=== PATIENT | female | born 1940 | race Caucasian/White ===

== ENCOUNTER 2022-07-22 10:06 | Outpatient (REF) | payer MEDICARE, SELFPAY ==
[2022-07-22 13:58] LABS: MANUAL DIFF FLAG NO
[2022-07-22 14:05] LABS: Basophils Percent Auto 0.8 % (0-2); Eosinophils Absolute Auto 0.2 X10*3/uL (0.0-0.4); Eosinophils Percent Auto 3.5 % (0-4); Hemoglobin 12.7 g/dl (12.0-16.0); Imm Gran Abs Auto 0.01 X10*3/uL (0.00-0.03); Imm Gran Pct Auto 0.2 % (0.0-0.4); Lymphocytes Absolute Auto 1.5 X10*3/uL (1.2-4.9); Lymphocytes Percent Auto 31.3 % (20-40); Mean Corpuscular HGB Conc 32.6 g/dl (31.0-35.0); Mean Corpuscular Hemoglobin 31.8 pg (27.0-33.0); Mean Corpuscular Volume 97.5 fL (80.0-98.0); Mean Platelet Volume 11.3 fL (9.4-12.3); Monocytes Absolute Auto 0.3 X10*3/uL (0.1-1.2); Monocytes Percent Auto 6.1 % (2-11); Neutrophils Absolute Auto 2.8 x10*3/uL (2.0-8.3); Neutrophils Percent Auto 58.1 % (45-73); Platelet Count 236 X10*3/uL (160-400); Red Cell Distribution Width 12.2 % (11.0-16.0); White Blood Count 4.9 X10*3/uL (4.8-10.8)
[2022-07-22 14:23] LABS: Alanine Aminotransferase 11 U/L (0-31); Albumin Level 4.1 g/dL (3.5-5.0); Alkaline Phosphatase 106 U/L (39-117); Anion Gap 14 (12-20); Aspartate Amino Transferase 23 U/L (5-31); Bilirubin Total 0.3 mg/dL (0.0-1.0); Blood Urea Nitrogen 14 mg/dL (9-16); Calcium 8.7 mg/dL (8.4-10.2); Carbon Dioxide 27 mmol/L (22-29); Chloride 104 mmol/L (96-108); Estimated Glomerular Filt Rate 59; Glucose Random 96 mg/dL (60-115); Iron 101 mcg/dL (30-160); Percent Iron Saturation 37 % (15-50); Potassium 4.4 mmol/L (3.3-5.1); Sodium 141 mmol/L (135-145); Total Iron Binding Capacity 274 mcg/dL (228-428); Total Protein 7.2 g/dL (6.5-8.0); Unsaturated Iron Binding 173 ug/dL
[2022-07-22 14:37] LABS: Ferritin 123 ng/mL (10-250); Free T4 (Free Thyroxine) 0.93 ng/dL (0.71-1.85); Thyroid Stimulating Hormone 1.64 uIU/mL (0.32-4.0); Vitamin D 25-OH Total 51.4 ng/mL (>30)
[2022-07-22 14:48] LABS: Folate 10.9 ng/mL (> or = 4.0); Vitamin B12 310 pg/mL (200-900)
== END 2022-07-22 10:07 | disposition home or self-care (01) ==
LOC: HO.MANLDS 10:06
PROVIDERS: Visit Provider Physician Assistant
DX: I10 Essential (primary) hypertension (principal)
CPT/HCPCS: 36415; 80053; 82306; 82607; 82728; 82746; 83540; 84439; 84443; 85025

== ENCOUNTER 2023-12-31 10:29 | Outpatient (REF) | payer MEDICARE, SELFPAY ==
[2023-12-31 13:24] LABS: MANUAL DIFF FLAG NO
[2023-12-31 13:29] LABS: Basophils Absolute Auto 0.1 X10*3/uL (0.0-0.2); Basophils Percent Auto 1.1 % (0-2); Eosinophils Absolute Auto 0.2 X10*3/uL (0.0-0.4); Eosinophils Percent Auto 3.3 % (0-4); Hematocrit 38.3 % (37.0-47.0); Hemoglobin 12.7 g/dl (12.0-16.0); Imm Gran Abs Auto 0.01 X10*3/uL (0.00-0.03); Imm Gran Pct Auto 0.2 % (0.0-0.4); Lymphocytes Absolute Auto 1.5 X10*3/uL (1.2-4.9); Lymphocytes Percent Auto 26.6 % (20-40); Mean Corpuscular HGB Conc 33.2 g/dl (31.0-35.0); Mean Corpuscular Hemoglobin 32.3 pg (27.0-33.0); Mean Corpuscular Volume 97.5 fL (80.0-98.0); Mean Platelet Volume 11.2 fL (9.4-12.3); Monocytes Absolute Auto 0.4 X10*3/uL (0.1-1.2); Monocytes Percent Auto 6.4 % (2-11); Neutrophils Absolute Auto 3.4 x10*3/uL (2.0-8.3); Neutrophils Percent Auto 62.4 % (45-73); Platelet Count 232 X10*3/uL (160-400); Red Blood Count 3.93 X10*6/uL (4.20-5.50); Red Cell Distribution Width 12.8 % (11.0-16.0); White Blood Count 5.5 X10*3/uL (4.8-10.8)
[2023-12-31 14:04] LABS: Estimated Average Glucose 108 mg/dL; Hemoglobin A1c % 5.4 % (<6.0)
[2023-12-31 14:22] LABS: Alanine Aminotransferase 10 U/L (0-31); Albumin Level 3.9 g/dL (3.5-5.0); Alkaline Phosphatase 97 U/L (39-117); Anion Gap 9 (12-20); Aspartate Amino Transferase 22 U/L (5-31); Bilirubin Total 0.3 mg/dL (0.0-1.0); Blood Urea Nitrogen 16 mg/dL (9-16); Calcium 8.8 mg/dL (8.4-10.2); Carbon Dioxide 28 mmol/L (22-29); Chloride 105 mmol/L (96-108); Estimated Glomerular Filt Rate > 60; Glucose Random 97 mg/dL (60-115); Potassium 4.1 mmol/L (3.3-5.1); Sodium 138 mmol/L (135-145); Total Protein 7.4 g/dL (6.5-8.0)
[2023-12-31 14:28] LABS: Free T4 (Free Thyroxine) 0.91 ng/dL (0.71-1.85); Thyroid Stimulating Hormone 2.23 uIU/mL (0.32-4.0); Vitamin D 25-OH Total 46.7 ng/mL (>30)
== END 2023-12-31 10:30 | disposition home or self-care (01) ==
LOC: HO.MANLDS 10:29
PROVIDERS: Visit Provider Physician Assistant
DX: Z00.00 Encounter for general adult medical examination without abnormal findings (principal)
CPT/HCPCS: 36415; 80053; 82306; 83036; 84439; 84443; 85025

== ENCOUNTER 2025-02-01 08:58 | Outpatient (REF) | payer MEDICARE, SELFPAY ==
--- OUTSIDE RECORDS SUMMARY | 2025-02-01 09:34 | XMS_ITS | Data Portability ---
Author Organization [facility] Home Service Address [address] [place] [address] Assessment No assessment recorded. Plan of Treatment Reminders Order Date Submit Date Provider Last Modified By Organization Details Last Modified Time Details Appointments ANNUAL EXAM 2025 10:30A M DAVIDE NI Not available Not available Not available Lab CMP, serum or plasma 2024 025 [facility], [address] [place] [address], [id number], 01/10/2025 13:46:31 CBC w/ auto diff 2024 025 [facility], [address] [place] [address], [id number], 01/10/2025 13:46:31 lipid panel, serum 2024 025 [facility], [address] [place] [address], [address], 01/10/2025 13:46:31 hemoglobi n A1c, QN, blood 2024 025 [facility], [address] [place] [address], [address], 01/10/2025 13:46:31 vitamin D, 25-hydrox y, total, serum 2024 025 [facility], [address] [place] [address], [address], 01/10/2025 13:46:31 CMP, serum or plasma 2023 [facility], [address] [place] [address], [place], [address], 01/01/2024 11:46:04 lipid panel, serum 2023 [facility], [address] [place] [address], [id number], 12/26/2023 13:46:07 CBC w/ auto diff 2023 [facility], [address] [place] [address], [id number], 01/01/2024 11:46:04 TSH + free T4, serum 2023 [facility], [address] [place] [address], [address], 12/26/2023 13:46:07 vitamin D, 25-hydrox y, total, serum 2023 024 [facility], [address] [place] [address], [place], [address], 12/26/2023 13:46:07 hemoglobi n A1c, QN, blood 2023 [facility], [address] [place] [address], [address], 01/01/2024 11:46:04 Referral None recorded. Procedures None recorded. Surgeries None recorded. Imaging None recorded. Medication Orders monteluka st 10 mg tablet 2023 024 rtryba Not available 01/10/2025 13:38:57 prednison e 10 mg tablet 2022 023 Not available 12/26/2023 13:30:50 hydroxyzi ne HCl 25 mg tablet 2022 023 Not available 12/26/2023 13:30:22 Patient TargetsNo targets recorded. Patient Instructions Encounter Date Encounter Id Patient Instructions Last Modified By Organization Details Last Modified Time 12/23/2022 [id number] adult depression screening* [email or web address] Not available 12/30/2022 08:31:42 pulse oximetry* rtryba Not available 12/23/2022 13:46:05 Reason for Referral None Reported. Results Created Date Observation Date Name Description Value Unit Range Abnormal Flag Note LastModifiedBy Organization Detail LastModifiedTime 12/24/19 23 12/23/2022 pulse oxime try* Result 97 Not Available [facility] [address] [facility] [address], [place], [address], 12/23/2022 13:39:00 Result Notes None recorded. 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 repeat in 2020 recommend ed January PINKY Kay [address] [place], [address], [facility] 9 09:15:55 Nodule of lung 645017594 Active 2018 incidenta l finding on ct 08/18/19January PINKY Kay [address] [place], [address], [facility] 9 09:16:14 Chronic gastriti s 9403225 Active 2020 Humberto Cary DO [address] [place], [address], [facility] 1 00:12:37 Osteoart hritis 523553280 Active 2021 DAVIDE NI [address] [place] [address], [address], [facility] 2 16:02:38 Bilatera l osteoart hritis of knees 31398200831 9107 Active 2021 DAVIDE NI [address] [place] [address], [address], [facility] 2 10:33:47 Hyperten sive disorder 39163703 Active 2021 DAVIDE NI [address] [place] [address], [address], [facility] 2 10:00:05 Insomnia 012401252 Active 2022 DAVIDE NI [address] [place] [address], [address], [facility] 3 12:06:22 Restless legs 12718975 Active 2022 DAVIDE NI [address] [place] [address], [address], [facility] 3 12:15:57 Contact dermatit is 08415900 Active 2022 DAVIDE NI [address] [place] [address], [address], [facility] 3 11:18:19 Allergic rhinitis 56746260 Active 2023 DAVIDE NI [address] [place] [address], [address], [facility] 4 13:42:18 Problem Notes None recorded. Procedures Surgical History Date Name Laterality Status Provider Name and Address Organization Details Recorded Time 4 Most Recent Mammogram completed Melissa Fregoso [facility] 03/26/2019 08:25:51 Imaging Results None recorded. Procedure Notes None recorded. Medical Equipment None Reported. Allergies Allergen ID Allergen Name Allergen Category Reaction Reaction Severity Criticality Documentation Date Start Date Code Code System Note Provider Name and Address Organization Details Recorded Time 2150 aspirin medicatio n Not available Not available Not available 05/20/2018 1191 RxNorm Arleen Abdoul jones [facility] 8 08:50:08 2151 penicilli n V Not available Not available Not available Not available 05/20/2018 7984 RxNorm Arleen Abdoul jones [facility] 8 08:50:14 Medications Name Sig Start Date Stop Date Status Note LastModified by Organization Details LastModified Time Colace 100 mg capsule Take 1 capsule twice a day by oral route for 30 days. 12/17 completed Not Available Not Available Not Available prednisone 10 mg tablet TAKE 4 TABLETS BY MOUTH DAILY FOR 2 DAYS THEN TAKE 3 TABLETS FOR 2 DAYS THEN TAKE 2 TABLETS FOR 2 DAYS THEN TAKE 1 TABLET FOR 2 DAYS 12/25 completed Not Available Not Available Not Available albuterol sulfate 2.5 mg/3 mL (0.083 %) solution for nebulizatio n USE 3 ML VIA NEBULIZER THREE TIMES DAILY 12/25 completed Not Available Not Available Not Available cetirizine 10 mg tablet TAKE 1 TABLET BY MOUTH EVERY DAY 01/21 completed Not Available Not Available Not Available alendronate 70 mg tablet TAKE 1 TABLET BY MOUTH EVERY WEEK ON AN EMPTY STOMACH. DO NOT TAKE ANY FOOD OR DRINK 30 MINUTES AFTER TAKING AND STAY UPRIGHT FOR 30 MINUTES 12/17 completed Not Available Not Available Not Available moxifloxaci n 400 mg tablet Take 1 tablet every day by oral route for 10 days. 03/16 completed Not Available Not Available Not Available tramadol 50 mg tablet TAKE 2 TABLETS BY MOUTH TWICE DAILY NEEDED active Not Available Not Available No t Available ketorolac 0.5 % eye drops PLACE 1 DROP IN SURGICAL EYE THREE TIMES DAILY FOR 3 WEEKS AFTER CATARACT SURGERY 01/10 completed Not Available Not Available Not Available montelukast 10 mg tablet TAKE 1 TABLET BY MOUTH EVERY DAY 01/10 completed Not Available Not Available Not Available hydroxyzine HCl 25 mg tablet TAKE 1 TABLET BY MOUTH EVERY 6 TO 8 HOURS FOR 7 DAYS NEEDED 12/25 completed Not Available Not Available Not Available bisacodyl 5 mg tablet,carlos yed release TK 4 TS PO 1 TIME THE DAY B PRO WITH 8 OUNCES OF WATER FOR 1 DAY 12/17 completed Not Available Not Available Not Available coenzyme Q10 take 1 capsule once daily 01/21 completed Not Available Not Available Not Available Boost 12/17 completed Not Available Not Available Not Available peg 3350-electr olytes 236 gram-22.74 gram-6.74 gram-5.86 gram solution MIX AND DRINK UTD 04/11 completed Not Available Not Available Not Available Vitamin D3 50 mcg (2,000 unit) capsule Take 1 capsule every day by oral route. 12/17 completed Not Available Not Available Not Available Linzess 145 mcg capsule Take 1 capsule every day by oral route for 30 days. 12/17 completed Not Available Not Available Not Available Breo Ellipta 100 mcg-25 mcg/dose powder for inhalation INHALE 1 PUFF BY MOUTH EVERY DAY 07/22 completed PRN Not Available Not Available Not Available Vitals Date Recorded Body height Body mass index (BMI) Body weight Heart rate Oxygen saturation Oxygen saturation in Arterial blood by Pulse oximetry Systolic blood pressure Diastolic blood pressure Provider Name and Address Organization Details Last Updated DateTime 3 159.39 cm 16.6 kg/m2 59216.0 9 g 66 /min 97 % 97 % 142 mm[Hg] 78 mm[Hg] Arleen Schreiber [facility] 3 13:36:14 Date Recorded Body height Body mass index (BMI) Body weight Heart rate Oxygen saturation Oxygen saturation in Arterial blood by Pulse oximetry Systolic blood pressure Diastolic blood pressure Provider Name and Address Organization Details Last Updated DateTime 3 159.39 cm 16.2 kg/m2 70860.9 1 g 84 /min 97 % 97 % 150 mm[Hg] 70 mm[Hg] Ute Perera [facility] 3 11:09:49 Date Recorded Body height Body mass index (BMI) Body weight Heart rate Oxygen saturation Oxygen saturation in Arterial blood by Pulse oximetry Systolic blood pressure Diastolic blood pressure Provider Name and Address Organization Details Last Updated DateTime 4 159.39 cm 15.9 kg/m2 42062 g 87 /min 97 % 97 % 138 mm[Hg] 88 mm[Hg] Kandi Drew [facility] 4 13:32:29 Date Recorded Body height Body mass index (BMI) Body weight Heart rate Oxygen saturation Oxygen saturation in Arterial blood by Pulse oximetry Systolic blood pressure Diastolic blood pressure Provider Name and Address Organization Details Last Updated DateTime 4 159.39 cm 15.6 kg/m2 71214.9 g 92 /min 97 % 97 % 136 mm[Hg] 88 mm[Hg] Kandi Cleveland [facility] 4 15:01:08 Date Recorded Body height Body mass index (BMI) Body weight Heart rate Oxygen saturation Oxygen saturation in Arterial blood by Pulse oximetry Systolic blood pressure Diastolic blood pressure Provider Name and Address Organization Details Last Updated DateTime 5 159.39 cm 15 kg/m2 02651.7 6 g 100 /min 98 % 98 % 152 mm[Hg] 90 mm[Hg] Kandi [facility] 5 13:31:12 Social History Question Answer Notes LastModified by Organizat ion Details LastModified Time Tobacco Smoking Status [facility] 13:32:12 What Was The Date Of Your Most Recent Tobacco Screening? 01/10/2025 Information not available 01/10/2025 How Much Tobacco Do You Smoke? 0.5 PPD Information not available 12/23/2022 Do You Or Have You Ever Used Any Other Forms Of Tobacco Or Nicotine? No Information not available 12/23/2022 Sex: Unknown Functional Status None recorded. Mental Status None recorded. Family History Nothing Reported. Medical History No medical history recorded. Gynecological History Statement/Question Response Most Recent Mammogram 03/21/2014 Obstetrics History GPAL:G 0 P 0 0 0 0 Immunizations Vaccine Type Date Status Note Provider Nam e and Address Organization Details Recorded Time COVID-19, mRNA, LNP-S, PF, 30 mcg/0.3 mL dose 01/22/20 21 completed Stephenie jones, [facility] 04/03/2021 09:46:36 COVID-19, mRNA, LNP-S, PF, 30 mcg/0.3 mL dose 11/17/19 21 completed Stephenie jones [facility] 04/03/2021 09:46:42 COVID-19, mRNA, LNP-S, PF, 30 mcg/0.3 mL dose 08/03/20 21 completed Kelli jones, [facility] 07/22/2022 08:04:32 Influenza, split virus, quadrivalent, preservative 07/10/20 22 [facility] 08:04:49 Tdap 03/03/20 12 completed PINKY Bradley [address] [place] [address], [address], [facility] 03/26/2019 11:10:20 Influenza, split virus, quadrivalent, preservative 06/11/20 19 [facility]/14/2019 08:38:09 pneumococcal polysaccharide PPV23 07/07/20 15 completed Humberto Cary DO [address] [place] [address], [address], [facility] 05/20/2018 10:14:22 Pneumococcal conjugate PCV 13 07/16/20 17 completed Humberto Cary DO [address] [place] [address], [address], [facility] 05/20/2018 10:14:50 Influenza, split virus, quadrivalent, preservative 06/09/20 18 completed Humberto Cary DO [address] [place] [address], [address], [facility] 06/10/2018 06:58:10 Past Encounters Encounter ID Performer Location Encounter Start Date Encounter Closed Date Diagnosis/Indication Diagnosis SNOMED-CT Code Diagnosis ICD10 Code Diagnosis Note [id number] Humberto Cary DO [facility] [address] [facility],[place] [address] 05/20/2018 09:31:35 05/20/2018 10:19:53 Chronic obstructive pulmonary disease 51805778 J44.9 cont to somke and is not going to stop 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 and able to complete tasks Tobacco de pendence syndrome 38941942 F17.200 still trying long discussion re issues with copd and smoking Primary osteoporosis 276 523786 M81.0 multiple risk factors including wgt, smoking , age etc discussed supplement ation Degenerati on of lumbar intervertebral disc 47676562 M51.36 stable when active, pain can get severe at times tramadol works very well and she is using appropriat torri and without issue or suspect Adult heal th examination 179096340 Z00.00 Active or passive immunization 561939418 Z23 recorded Screening for cardiovascular system disease 916684050 Z13.6 Screening for malignant neoplasm of colon 450326566 Z12.11 Screening for osteoporosis 444492137 Z13.820 Screening mammography 24 070601 Z12.31 [id number] Humberto Cary DO [facility] [address] [facility],[place] [employer] [facility] [employer] [place] [address] 07/24/2018 15:10:06 07/24/2018 17:09:09 Renewal of prescription 834871130 Z76.0 tramadol Chronic ob structive pulmonary disease 85435676 J44.9 cont to somke and is not going to stop 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 and able to complete tasks Tobacco de pendence syndrome 47708341 F17.200 still trying long discussion re issues with copd and smoking Degenerati on of lumbar intervertebral disc 92792111 M51.36 stable when active, pain can get severe at times tramadol works very well and she is using appropriat torri and without issue or suspect [id number] Humberto Cary DO [facility] [address] [facility],[place] [address] 03/16/2019 13:52:22 03/16/2019 15:23:56 Chronic obstructive pulmonary disease 26613614 J44.9 cont to somke and is not going to stop 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 and able to complete tasks Tobacco de pendence syndrome 24952077 F17.200 still trying long discussion re issues with copd and smoking Degenerati on of lumbar intervertebral disc 14759841 M51.36 stable when active, pain can get severe at times tramadol works very well and she is using appropriat torri and without issue or suspect [id number] Raya [facility] [address] [facility], [place] [address] 03/26/2019 10:51:47 03/26/2019 12:25:31 Adult health examination 967346331 Z00.00 already has HCP/plan Screening for cardiovascular system disease 646942780 Z13.6 Screening for malignant neoplasm of colon 627698061 Z12.11 never had colonoscop y will do cologuard Screening for osteoporosis 636876762 Z13.820 was seening susanne for treatments until adams retired then stopped treatment/ fu Screening mammography 24 227660 Z12.31 doesn't do mammograms any more has never had anything abnormal no longer planning to do any Osteoporosis 57417432 M8 1.0 Decreased body mass index 7274963 Z68.1 eats a lot Microscopic hematuria 19 5921074 R31.21 states has had for years but never saw urology 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 [id number] Raya Eliza [facility] [address] [facility],[place] [address] 07/07/2019 11:04:52 07/07/2019 11:41:05 Osteoporosis 17089340 M81.0 has taken some infusions yearly x [address] lamas - unsure of what the med was does not want to take alendronat e already taking vitamin d daily will consult endo for other treatment options Tobacco de pendence syndrome 15162981 F17.200 Chronic ob structive pulmonary disease 00912976 J44.9 breathing not bothersome Decreased body mass index 9793613 Z68.1 has been trying to increase protein trying to eat better, skips meals a lot [id number] Raya [facility] [address] [facility],[place] [address] 11/03/2019 09:56:57 11/03/2019 11:09:53 Chronic obstructive pulmonary disease 72568447 J44.9 breathing not bothersome Degenerati on of lumbar intervertebral disc 89358763 M51.36 chronic back pain takes 2 tablets twice a day fills med every 2 months med works well Pain in pelvis 98279253 R10.2 if fever, diarrhea etc recommend going to the ER ? [place] [id number] January ElizaPINKY [facility] [address] [facility] [place] [address] 12/17/2019 15:12:35 12/17/2019 16:07:48 Chronic obstructive pulmonary disease 75593092 J44.9 breathing not bothersome Constipation 58953387 K5 9.00 will get on a bowel regimen of stool softeners given the tramadol take probiotic take metamucil fiber supplement ensure to take 64 oz of fluids per day - primarily water - avoid artificial sweeteners increase fiber in diet try mag citrate OTC and if fails may need to have enema done Unintentio nal weight loss 904680663 R63.4 Lightheadedness 66090201 8 R42 possibly dehdydrate d [id number] DAVIDE NI [facility] [address] [facility] [place] [address] 06/13/2020 09:16:12 06/13/2020 09:47:37 Chronic obstructive pulmonary disease 05903062 J44.9 will give Breo samples per MB as we do not have any advair samples to give her today will see if BReo helps, patient will try and call insurance to see if they cover anything Chronic constipation 236 076769 K59.09 has tried all prior conservati ve treatment as per AB with no results has been having a lot of lower abdominal discomfort because of this will try a trial of linzess to see if improvemen t will have patient call [facility] [place] y [id number] DAVIDE NI [facility] [address] [facility] [address],[place] [address] 04/11/2021 10:05:54 04/11/2021 11:15:40 Chronic obstructive pulmonary disease 56224929 J44.9 stable Tobacco de pendence syndrome 88197924 F17.200 will not quit [id number] DAVIDE NI [facility] [address] [facility] [address],[place] [address] 12/17/2021 13:21:58 12/18/2021 12:20:26 Active or passive immunization 552876315 Z23 advised Adult heal th examination 987872670 Z00.00 BP is elevated, fluctuates Posterior rhinorrhea 758 73535 R09.82 will start on medication [id number] DAVIDE NI [facility] [address] [facility] [place] [address] 07/22/2022 09:41:49 07/22/2022 11:43:51 Chronic obstructive pulmonary disease 12560157 J40 stable Osteoarthritis 287115260 M15.0 stable on tramadol Tobacco de pendence syndrome 69525151 F17.290 will not quit per patient Hypertensive disorder 38 908578 I10 drank SIX cups of coffee before coming to the officewake s up at 5 am for work Depression screening 171 275935 Z13.31 negative [id number] DAVIDE NI [facility] [address] [facility] [address],[place] [address] 10/18/2022 11:28:02 10/22/2022 08:48:54 Degeneration of lumbar intervertebral disc 64333181 M51.36 will adjust script and see if there is still Insomnia 643213038 G47.0 9 trying unisom, will continueon ly started being an issue with her sudden issue with tramadol, has pain in the most Restless legs 47200195 G 25.81 start mag and increase fluidswill let me know if it gets betterif it doesn't will call back and we can try ropinirole [id number] DAVIDE NI [facility] [address] [facility] [address],[place] [address] 12/23/2022 13:19:23 12/23/2022 14:05:43 Active or passive immunization 616391572 Z23 advised Adult heal th examination 105091786 Z00.00 BP is elevated, fluctuates recent lab-work done in July was goodnot due today Chronic ob structive pulmonary disease 73485595 J44.9 stable Advance care planning 71 3622073 Z71.89 advised todayhas a health care proxy [id number] DAVIDE NI [facility] [address] [facility] [place] [address] 01/21/2023 10:45:22 01/21/2023 13:54:35 Contact dermatitis 61335876 L23.3 will start on prednisone and hydroxyzin e [id number] DAVIDE NI [facility] [address] [facility] [address],[place] [address] 12/26/2023 13:26:21 12/26/2023 14:04:29 Allergic rhinitis 08810947 J30.89 will set up with singulair Adult heal th examination 780346469 Z00.00 needs fu bw, routine [id number] DAVIDE NI [facility] [address] [facility] [address],[place] [address] 06/18/2024 14:37:26 06/18/2024 15:16:10 Pre-surgery evaluation 112730215 Z01.818 The patient was seen in the office today for pre-op evaluation . All medical conditions on patient's problem list were addressed and are currently stable, no interventi on needed at this time. Based on history and physical performed, the patient is cleared for surgery. Depression screening 171 090661 Z13.31 negative [id number] DAVIDE NI [facility] [address] [facility],[place] [address] 01/10/2025 13:18:43 01/10/2025 13:53:04 Active or passive immunization 962183434 Z23 advised Adult heal th examination 899938241 Z00.00 will set up with routine BW Chronic ob structive pulmonary disease 50464777 J41.1 stable Health Concerns Section Related Observation LastModified by Organization Detai ls LastModified Time None Recorded Concern Status LastModified by Organization Details LastModified Time None Recorded Advance Directives Directive None Recorded Payers Encounter Date Sequence Insurance Name Policy Number Policy Henderson Covered Member ID Henderson Member ID Guarantor Name 12/23/2022 1 [place] [employer] Lakisha Peralta [id number] Lakisha Peralta 12/23/2022 2 [facility] OPTIONS Lakisha Peralta [id number] Lakisha Peralta 01/21/2023 1 [place] [employer] Lakisha Peralta [id number] Lakisha Peralta 01/21/2023 2 [facility] - OPTIONS Lakisha Peralta [id number] Lakisha Peralta 12/26/2023 1 [place]: [facility] Lakisha Peralta [id number] Lakisha Peralta 12/26/2023 2 [facility] - OPTIONS Lakisha Peralta [id number] Lakisha Peralta 06/18/2024 1 [place] [facility] Lakisha Peralta [id number] Lakisha Peralta 06/18/2024 2 [facility] - OPTIONS Lakisha Peralta [id number] Lakisha Peralta 01/10/2025 1 MEDICARE [place]: [facility] Lakisha Peralta [id number] Laksiha Peralta 01/10/2025 2 [facility] Lakisha Peralta [id number] Lakisha Peralta Notes Date Note Type Note Provider Name a nd Address Organization Details Recorded Time 3 text/html Annual WellnessReported bypatient.Diet and Nutrition:healthy diet; discussed vitamin and supplement use; discussed portion control; discussed maintaining calcium balance; discussed diet improvement; stable no issues Fracture Risk:no history of fractures; no recent explained fracture; no sudden unexplained fractures; no previous musculoskeletal injuries; no recent injuries Physical Activity:exercises on a regular basis; recent increase in physical activity; good physical condition; discussed weightbearing activities; discussed exercise habits Additional Lifestyle Factors:tobacco use; drinks alcohol (mild-moderate) Depression Risk:never feels sad, empty, or tearful; no loss of interest in activities; no significant changes in weight; no sleep disturbances or insomnia; no agitation; no loss of energy; no feelings of worthlessness or guilt; no thoughts of suicide; no history of depression; no history of mood disorders Hearing:no loss of hearing Vision:no vision problems the patient is now able to sleep 6 hoursfeels rested low back pain is stable today at her an appt (uses tramadol sparingly)no urinary or bowel changes COPD: stable today in officeher allergies due to tend bother her [address] [place], [id number], [facility] 12/23/2022 13:54:56 3 text/html rash patient has a rash on her back to her waistno rash in the front on the sides (bilateral flanks) macular, red rashno vesciles or pustulesdoes not look like shingles possible allergic reaction?does have a lot of seasonal allergies that happen this time of year reports it's very itchyno pain, no discharge some lacerations in the skin from where she was scratching will start her on pred and hydroxyzine [address] [place], [id number], [facility] 01/21/2023 11:24:01 4 text/html Annual WellnessReported bypatient.Diet and Nutrition:healthy diet; discussed vitamin and supplement use; discussed portion control; discussed maintaining calcium balance; discussed diet improvement Depression Risk:never feels sad, empty, or tearful; no loss of interest in activities; no significant changes in weight; no sleep disturbances or insomnia; no agitation; no loss of energy; no feelings of worthlessness or guilt; no thoughts of suicide; no history of depression; no history of mood disorders Hearing:no loss of hearing Vision:no vision problems BP is fine breathing is doing well rash is stable the patient reports swelling of the MCP joint of the right thumb has been getting swollen in the morning, does have notable arthritis in her hands vaccines [id number] getting the RSV vaccine as well given her smoking hx and hx of COPD [address] [place], [id number], [facility] 12/26/2023 13:48:38 4 text/html Pre-OpReported bypatient.Surgery to be Performed:left eye cataract then right eye cataract with Dr. Valdez on 07/05/24 Risk Factorsno cognitive impairment; no functional impairment; no malnutrition; no frailty; able to climb a flight of stairs (exercise capacity>4 METS); non-smoker; no alcohol misuse; no illicit drug use; no chronic cardiopulmonary condition; not obese;obstructive sleep apnea(stable) Anesthesia hx:no history with anesthesia Functional Ability:able to walk up stairs; able to perform heavy work around the house; no difficulty walking up hills; able to walk 4 mph Post-Op Support:adequate assistance at home (daughter) DAVIDE [address] [place] [address], [id number], [facility] 06/18/2024 15:10:35 text/html Annual WellnessReported bypatient.Diet and Nutrition:healthy diet; discussed vitamin and supplement use; discussed portion control; discussed maintaining calcium balance; discussed diet improvement Fracture Risk:no history of fractures; no recent explained fracture; no sudden unexplained fractures; no previous musculoskeletal injuries Physical Activity:exercises on a regular basis; recent increase in physical activity; good physical condition Additional Lifestyle Factors:no tobacco use; drinks alcohol (mild-moderate) Depression Risk:never feels sad, empty, or tearful; no loss of interest in activities; no significant changes in weight; no sleep disturbances or insomnia; no agitation; no loss of energy; no feelings of worthlessness or guilt; no thoughts of suicide; no history of depression; no history of mood disorders Hearing:no loss of hearing Vision:no vision problems [address] [place] [address], [id number], [facility] 01/10/2025 13:47:25 OBGyn Episode No OBEpisode recorded.
[2025-02-01 13:12] LABS: MANUAL DIFF FLAG NO
[2025-02-01 13:28] LABS: Basophils Absolute Auto 0.1 X10*3/uL (0.0-0.2); Basophils Percent Auto 1.3 % (0-2); Eosinophils Absolute Auto 0.2 X10*3/uL (0.0-0.4); Eosinophils Percent Auto 2.7 % (0-4); Hematocrit 38.2 % (37.0-47.0); Hemoglobin 12.5 g/dl (12.0-16.0); Imm Gran Abs Auto 0.02 X10*3/uL (0.00-0.03); Imm Gran Pct Auto 0.4 % (0.0-0.4); Lymphocytes Absolute Auto 1.4 X10*3/uL (1.2-4.9); Lymphocytes Percent Auto 25.1 % (20-40); Mean Corpuscular HGB Conc 32.7 g/dl (31.0-35.0); Mean Corpuscular Volume 97.7 fL (80.0-98.0); Mean Platelet Volume 11.2 fL (9.4-12.3); Monocytes Absolute Auto 0.4 X10*3/uL (0.1-1.2); Monocytes Percent Auto 7.9 % (2-11); Neutrophils Absolute Auto 3.5 x10*3/uL (2.0-8.3); Neutrophils Percent Auto 62.6 % (45-73); Platelet Count 234 X10*3/uL (160-400); Red Blood Count 3.91 X10*6/uL (4.20-5.50); Red Cell Distribution Width 12.7 % (11.0-16.0); White Blood Count 5.5 X10*3/uL (4.8-10.8)
[2025-02-01 13:40] LABS: Estimated Average Glucose 117 mg/dL; Hemoglobin A1C 127.1873 umol/L; Hemoglobin A1c % 5.7 % (<6.0); Total Hemoglobin (HGBA1C) 3297.2065 umol/L
[2025-02-01 14:00] LABS: Alanine Aminotransferase 11 U/L (0-31); Albumin Level 3.9 g/dL (3.5-5.0); Alkaline Phosphatase 94 U/L (39-117); Anion Gap 10 (12-20); Aspartate Amino Transferase 30 U/L (5-31); Bilirubin Total 0.3 mg/dL (0.0-1.0); Blood Urea Nitrogen 16 mg/dL (9-16); Calcium 8.4 mg/dL (8.4-10.2); Carbon Dioxide 29 mmol/L (22-29); Chloride 104 mmol/L (96-108); Cholesterol 193 mg/dL (<200); Estimated Glomerular Filt Rate > 60; Glucose Random 89 mg/dL (60-115); HDL Cholesterol 58 mg/dL (>40); LDL Cholesterol Calculated 119 mg/dL (<100); Potassium 3.9 mmol/L (3.3-5.1); Sodium 139 mmol/L (135-145); Total Protein 7.2 g/dL (6.5-8.0); Triglycerides 83 mg/dL (<150); Vitamin D 25-OH Total 58.7 ng/mL (>30)
== END 2025-02-01 08:59 | disposition home or self-care (01) ==
LOC: HO.MANLDS 08:58
PROVIDERS: Visit Provider Physician Assistant
DX: Z00.00 Encounter for general adult medical examination without abnormal findings (principal); Z13.6 Encounter for screening for cardiovascular disorders; Z13.1 Encounter for screening for diabetes mellitus
CPT/HCPCS: 36415; 80053; 80061; 82306; 83036; 85025